=== PATIENT | male | born 1980 | race Caucasian/White ===

== ENCOUNTER 2017-05-29 15:35 | Emergency (ER) | payer SELFPAY ==
[~2017-05-29] VITALS: Ht 185.4 cm; Wt 93.2 kg
[2017-05-29 17:16] VITALS: BP 104/87
== END 2017-05-29 17:24 | disposition home or self-care (01) ==
LOC: EME 15:35
DX: S93.401A Sprain of unspecified ligament of right ankle, initial encounter (principal); X50.1XXA Overexertion from prolonged static or awkward postures, initial encounter
CPT/HCPCS: 73610; 73630; 99281; 99283

== ENCOUNTER 2017-10-04 13:42 | Emergency (ER) | payer OTHER ==
[~2017-10-04] VITALS: Ht 182.9 cm; Wt 98.4 kg
[2017-10-04 14:56] LABS: HEMATOCRIT 34.7 % (38.0-50.0); MCHC 33.4 G/DL (30.0-36.0); MCV 83.6 FL (86-99); MEAN PLAT.VOLUME 8.8 uM^3 (9.0-12.4); PLATELET COUNT 165 K/uL (156-360); RBC DIS.WIDTH-CV 14.1 % (11.8-14.6); RBC DIS.WIDTH-SD 42.5 % (39-53); RED BLOOD COUNT 4.15 M/uL (4.00-5.50); WHITE BLOOD COUNT 6.1 K/uL (4.1-10.2)
[2017-10-04 15:09] LABS: CHLORIDE 106 mEq/L (99-109); SODIUM 138 mEq/L (136-147)
[2017-10-04 15:11] LABS: GLUCOSE 87 mg/dL (70-99)
[2017-10-04 15:12] LABS: ANION GAP 7 MEQ/L (2-14)
[2017-10-04 15:15] LABS: GFR ESTIMATE (CALCULATED) > 59 mL/min/; UREA NITROGEN (BUN) 12 mg/dL (9-23)
[2017-10-04 15:17] LABS: CREATINE KINASE 138 IU/L (1-294)
[2017-10-04] MEDS ORDERED: PERCOCET 5/31 TABLET PO (17:41)
[2017-10-04] MEDS ORDERED: KEFLEX500 MG PO (18:17)
[2017-10-04 18:44] VITALS: BP 136/65
== END 2017-10-04 18:45 | disposition home or self-care (01) ==
LOC: EME 13:42
PROVIDERS: Emergency Medicine
DX: S60.211A Contusion of right wrist, initial encounter (principal); T79.7XXA Traumatic subcutaneous emphysema, initial encounter; W23.0XXA Caught, crushed, jammed, or pinched between moving objects, initial encounter; Y99.0 Civilian activity done for income or pay; Z23 Encounter for immunization; F17.210 Nicotine dependence, cigarettes, uncomplicated; Z88.1 Allergy status to other antibiotic agents
CPT/HCPCS: 73060; 73090; 73130; 80048; 82550; 85027; 99281; 99284; J3010; J7030

== ENCOUNTER 2018-03-06 10:58 | Day surgery (SDC) | payer OTHER ==
[~2018-03-06] VITALS: Ht 185.4 cm; Wt 100.0 kg
[~2018-03-06 10:58] MED LIST: ADVIL200 MG PO; KEFLEX500 MG PO; MEN'S MULTI-VI1 EACH PO; PERCOCET 5/31 TABLET PO
[2018-03-06 12:03] VITALS: BP 130/77
[2018-03-06 16:11] VITALS: BP 167/70
[2018-03-06 16:44] VITALS: BP 130/85
== END 2018-03-06 16:50 | disposition home or self-care (01) ==
LOC: SDC 10:58
PROC: 01N50ZZ Release Median Nerve, Open Approach (ICD-10-PCS; principal; 2018-03-06)
PROC: 01N40ZZ Release Ulnar Nerve, Open Approach (ICD-10-PCS; 2018-03-06)
DX: G56.01 Carpal tunnel syndrome, right upper limb (principal); G56.21 Lesion of ulnar nerve, right upper limb; X50.0XXA Overexertion from strenuous movement or load, initial encounter; Y99.0 Civilian activity done for income or pay; K21.9 Gastro-esophageal reflux disease without esophagitis; F17.200 Nicotine dependence, unspecified, uncomplicated
CPT/HCPCS: 87641; J0131; J0330; J0690; J1170; J1885; J2250; J3010; S0020

== ENCOUNTER 2018-04-23 21:12 | Emergency (ER) | payer OTHER ==
[~2018-04-23] VITALS: Ht 185.4 cm; Wt 97.1 kg
[2018-04-24 00:40] VITALS: BP 118/71
== END 2018-04-24 00:41 | disposition home or self-care (01) ==
LOC: EME 21:12
DX: L23.7 Allergic contact dermatitis due to plants, except food (principal); F17.200 Nicotine dependence, unspecified, uncomplicated; Z88.1 Allergy status to other antibiotic agents
CPT/HCPCS: 99281; 99284; J1100